=== PATIENT | female | born 1955 | race Caucasian/White ===

== ENCOUNTER 2024-12-15 09:52 | Outpatient (AMB) | payer MEDICARE, SELFPAY ==
--- NOTE | 2024-12-15 10:37 | A.OFFVIS_ITS ---
Intake Visit Reasons: 1 yr RLS Allergies No Known Allergies Allergy (Verified 12/09/24 08:22) HPI Comments Details: 69 yo woman with HTN, HLD, anxiety, and restless leg syndrome. She has been suffering from this condition for many years but especially during last 2-3 years. It was a problem at night when she would try to go to sleep in her feet and legs would keep on moving. Ropinorole was helpful. She denies any obvious side effects. She is presenting with Restless Legs Syndrome for follow-up. She reports experiencing occasional severe spells of restless legs, particularly at night. She has observed a potential link with her activity levels and diet, noting that less daytime activity and eating sweets before bedtime may worsen her symptoms. She has been managing her condition with ropinirole 2 mg, which she has been taking regularly without encountering any side effects. The patient feels this medication is effective for the most part. She obtains her prescriptions from the [facility] pharmacy. FORMERLY [facility], [facility]–1983 Medical History (Updated 12/15/24 @ 10:38 by Delroy Ellsworth MD) RLS (restless legs syndrome) Review of Systems Const Details: - Neurological: Reports episodes of restless legs syndrome, particularly at night; Denies other neurologic symptoms. - General: Denies changes in overall health status or other new complaints. Physical Exam Neuro Other: Mental Status: Alert and oriented to person, place, and time. Normal attention. Normal spontaneous speech, fluency, and comprehension. No obvious issues with mood and memory. Affect is appropriate. Cranial Nerves: CN II: Visual garcia full to confrontation, visual acuity intact. CN III, IV, : Pupils equal, round, reactive to light and accommodation. Extraocular movements are normal. CN V: Facial sensation is normal. CN VII: Facial movements symmetrical. CN VIII: Hearing intact to bedside conversation is normal. CN IX, X: Palate elevates symmetrically. CN XI: Shoulder shrug and head turn symmetrical. CN XII: Tongue midline without atrophy or fasciculations. Motor: Bulk and tone normal in all extremities. No significant muscle weakness in arms and legs. No drift. Extrapyramidal: Full facial expressions and blinking. No rigidity. Movements are appropriate with no tremor or abnormality. Speech: Normal; no dysarthria or tremor. Assessment & Plan Assessment & Plan (1) RLS (restless legs syndrome): Code(s): G25.81 - Restless legs syndrome Category: Medical Plan Impression: Restless leg syndrome Rec: Ropinorole 2mg at bedtime Medications: New ropinirole 2 mg PO BEDTIME 100 tabs 2RF Coding Level of Care Code Est Pt Level 3 (22169) Diagnoses RLS (restless legs syndrome) G25.81
--- OUTSIDE RECORDS SUMMARY | 2024-12-15 10:53 | XMS_ITS ---
Author Name [facility] Organization Unknown Care Team Organization Name Specialty Phone Email Start Date End [facility] AC 11/30/2024
--- OUTSIDE RECORDS SUMMARY | 2024-12-15 10:53 | XMS_ITS | Clinical Summary ---
Author Organization [facility] Address [address] [place] [address] Phone Care Team Providers Care Team Physician Name Role Phone Haritha Gómez MD Primary Care Provider [phone] Allergies Active Allergy Reactions Criticality Noted Date Comments Amoxicillin Hives 09/02/2021 Medications calcium carbonate-vitam in D3 500 mg-3.125 mcg (125 unit) tablet per tabelt 1 tablet with food Active rOPINIRole (REQUIP) 2 mg tablet Take 1 tablet (2 mg total) by mouth. Active losartan (COZAAR) 100 mg tablet TAKE 1 TABLET BY MOUTH 1 TIME EACH DAY. 90 tablet 2 5 Active cholecalciferol (VITAMIN D-3) 25 mcg (1,000 unit) tablet TAKE 1 TABLET BY MOUTH EVERY DAY 90 tablet 2 5 Active halobetasol (ULTRAVATE) 0.05 % cream Apply topically 2 (two) times a day. Active albuterol HFA (PROAIR HFA ; PROVENTIL HFA ; VENTOLIN HFA) 90 mcg/actuation inhaler Inhale 2 puffs by mouth every 4 (four) hours if needed for wheezing. 6.7 g 11 5 Active atorvastatin (LIPITOR) 10 mg tablet TAKE 1 TABLET BY MOUTH EVERY DAY 90 tablet 1 5 Active citalopram (CeleXA) 20 mg tablet TAKE 1 TABLET BY MOUTH EVERYDAY AT BEDTIME 90 tablet 1 5 Active Wixela Inhub 250-50 mcg/dose diskus inhaler Inhale 1 puff by mouth 2 (two) times a day. 1 each 5 Active Wixela Inhub 250-50 mcg/dose diskus inhaler Inhale 1 puff by mouth 2 (two) times a day. 5 12/12/19 25 Discontinu ed(Reorder ) Active Problems Problem Noted Date Diagnosed Date COPD (chronic obstructive pu lmonary disease) ([facility] V24, [facility] V28) 10/28/2024 Lung cancer ([facility] [place]24, [facility] V28) 5 Nocturnal hypoxemia 10/28/2024 History of lung cancer 09/17/2024 Assessment & Plan (09/19/2024 11:25 AM EDT): Ms. Vásquez is a 67 yr. female, former smoker, who is S/P a R VATS converted to thoracotomy RML and RLL in August 2018 for stage IA2 (pT1b, pN0) squamous cell carcinoma. She was followed by Dr. Onofre and she reports no adjuvant chemotherapy. Her most recent chest CT scan which was performed on 09/14/2024 for which images I personally viewed and agree with radiologist findings which show no new or worsening suspicious pulmonary nodules or mediastinal lymphadenopathy to suggest recurrent or metastatic disease in the chest. Stable 2 mm nodule and stable adrenal nodule. Next chest CT scan will be due in 12 months which will be September 2025 and have a visit at the thoracic surgery department thereafter to discuss results. She is instructed to call the office prior with any questions or concerns. Restless leg syndrome 04/21/2024 Asymptomatic varicose veins 04/21/2024 Fatty liver 10/19/2023 Primary hypertension 03/20/2023 Hyperlipidemia 03/20/2023 Anxiety and depression 03/20/2023 Allergies 03/20/2023 Mild persistent asthma 03/20/2023 Adrenal nodule ([facility] V24) 09/02/2021 Overview (06/18/2023): right Encounters Date Type Department Care Team Description 11/07/2024 Telephone Internal Medicine - [address] [place] [address] Haritha Gómez MD 10/31/2024 9:15 AM EDT Office Visit Pulmonolgy [facility] [address] [facility] [address] [place] [phone] Rosa Rabago MD Pulmonary emphysema, unspecified emphysema type ([facility] V24, [facility]/H[facility] V28) (Primary Dx); Squamous cell carcinoma of right lung ([facility] V24, [facility] V28); Morbid obesity ([facility] V24, [facility] V28); Nocturnal hypoxemia; Obstructive sleep apnea; Mild persistent asthma 10/31/2024 Telephone [facility] [address] [place] [phone] Haritha Gómez MD 10/27/2024 Telephone Internal Medicine [facility] 175 [facility] [address] [place] [phone] Haritha Gómez MD 10/26/2024 10:45 AM EDT Office Visit Internal Medicine - [address] [place] [phone] Haritha Gómez MD Medicare annual wellness visit, subsequent (Primary Dx); Routine general medical examination at a health care facility; Primary hypertension; Mixed hyperlipidemia; Anxiety and depression; History of lung cancer; Mild persistent asthma, unspecified whether complicated; Asymptomatic varicose veins; Adrenal nodule ([facility] V24); Encounter for lipid screening for cardiovascular disease; Vitamin D deficiency; Other fatigue; Other abnormal glucose; Restless leg syndrome 10/13/2024 11:30 AM EDT Office Visit Internal Medicine [facility] [address] [facility] [address] [place] [phone] Haritha Gómez MD Palpitations (Primary Dx); Primary hypertension; Mild persistent asthma, unspecified whether complicated 09/26/2024 9:50 AM EDT Office Visit Gastroenterology [facility] 175 [facility] [address] [facility] [address] [place] [phone] Sofia Trujillo PA Hepatomegaly (Primary Dx); Fatty liver 09/19/2024 11:00 AM EDT Office Visit Thoracic Surgery - [place] [address] [facility] [address] [place] [phone] Joyce Benjamin NP History of lung cancer (Primary Dx) 09/16/2024 Telephone Gastroenterology - [place] 175 [facility] [address] [facility] [address] [place] [phone] Sofia Trujillo PA 09/14/2024 8:26 AM EDT - 09/14/2024 11:59 PM EDT Hospital Encounter [facility] CT Scan [address] [place] [phone] History of lung cancer Discharge Disposition: Home or Self Care from Last 3 Months Immunizations Name Administration Dates Next Due Influenza, Unspecified 02/02/2023 Pneumococcal conjugate 20 va lent (Prevnar 20, PCV 20) 2mo and older 02/02/2023 Tdap Tetanus diptheria acell ular pertussis (Boostrix; Adacel) 7yo and older 10/26/2024 Surgical History Surgery Date Site/Laterality Comments OTHER SURGICAL HISTORY 2020 Right PROCEDURE: [place] THORACOSCOPY W/LOBECTOMY SINGLE LOBE OTHER SURGICAL HISTORY 06/2018 PROCEDURE: [place] BRONCHOSCOPY W/CPTR-ASST IMAGE-GUIDED NAVIGATION Medical History Medical History Date Comments Mixed hyperlipidemia DX:Mixed hy perlipidemia COPD (chronic obstructive pu lmonary disease) ([facility] V24, [facility] V28) DX:COPD (chronic o bstructive pulmonary disease) ([facility]) Anxiety disorder DX:Anxiety diso rder Essential (primary) hypertension DX:Essential (primary) hypertension Pneumonia 06/13/2022 DX:Pneumonia Tobacco dependence 06/13/2022 DX:Tobacco de pendence IGT (impaired glucose tolerance) 06/13/2022 DX:IGT (impaired glucose tolerance) Squamous cell carcinoma of r ight lung ([facility] V24, [facility] V28) 06/13/2022 DX:Squamous cell carcinoma of right lung (HCC); COMMENT: Per PCP OV note - 06/13/2022 Moderate persistent asthma w ithout complication 06/13/2022 DX:Moderate persistent asthm a without complication Primary hypertension 03/20/2023 DX:Primary hypertension Adrenal nodule ([facility] V24) 09/02/2021 DX: Adrenal nodule (HCC); COMMENT: right Hyperlipidemia 03/20/2023 DX:Hyperlipidemi a Anxiety and depression 03/20/2023 DX:Anxiet y and depression History of lung cancer 09/02/2021 DX:Histor y of lung cancer; COMMENT: August 2018: Stage 1A2 (pT1b, pN0) squamous cell carcinoma s/p RML/RLL bilobectomy via thoracotomy (Dr. Lowe, [facility]) Allergies 03/20/2023 DX:Allergies Mild persistent asthma 03/20/2023 DX:Mild p ersistent asthma Family History Medical History Relation Name Comments Breast cancer Aunt Other: Thyroid Cancer Brother Diabetes Father Heart attack Father Kidney failure Father Lymphoma Mother Other: Atrial Fib Mother Other: Thyroid Cancer Sister Relation Name Status Comments Aunt Alive Brother Father Mother Sister Social History Tobacco Use Types Packs/Day Years Used Date Smoking Tobacco: Former Cigarettes Q uit: 04/13/2018 Tobacco Cessation:Counseling Given: Not Answered Comments Unknown Sex and Gender Information Value Date Recorded Sex Assigned at Female 03/01/2024 6:46 PM EST Legal Sex Female 1:23 AM EST Gender Identity Female 03/01/2024 6:46 PM EST Sexual Orientation Not on file Obstetrics History Last Filed Vital Signs Vital Sign Reading Time Taken Comments Blood Pressure 142/61 10/31/2024 9:19 AM EDT Pulse 74 10/31/2024 9:19 AM EDT Temperature 36.4 C (97.6 F) 10/31/2024 9:19 AM EDT Respiratory Rate 20 10/31/2024 9:19 AM EDT Oxygen Saturation 98% 10/31/2024 9:19 AM EDT Inhaled Oxygen Concentration - - Weight 119 kg (263 lb) 10/31/2024 9:19 AM EDT Height 177.8 cm (5' 10 ) 10/31/2024 9:19 AM EDT Body Mass Index 37.74 10/31/2024 9:19 AM EDT Plan of Treatment Upcoming Encounters Date Type Department Care Team (Late st Contact Info) Description 02/14/2025 9:15 AM EST Ancillary Procedure Pulmonolgy - [place] 175 [facility] [address] [place] [address] 02/14/2025 10:00 AM EST Office Visit Pulmonolgy - [place] 175 [facility] [address] [place] [address] Rosa Rabago MD [address] [place] [address] 05/02/2025 9:10 AM EST Office Visit Gastroenterology - [address] [phone] Sofia Trujillo PA [address] [place] [address] 10/27/2025 9:15 AM EDT Office Visit Internal Medicine - [place] [address] [phone] Haritha Gómez MD [address] [place] [address] Health Maintenance Due Date Last Done Comments Hepatitis A Vaccines (1 of 2 - Risk 2-dose series) 10/19/1974 Zoster Vaccines (1 of 2) 10/19/1974 Hepatitis B Vaccines (1 of 3 - Risk 3-dose series) 2015 RSV Immunization Adult Patients (1 - Risk 60-74 years 1-dose series) 2015 COVID-19 Vaccine ( season) 2024 02/20/2022, 01/24/2021, 07/22/2020, Additional history exists Influenza Vaccine (#1) 2024 , 02/02/2023, 02/16/2019, Additional history exists Falls Risk Assessment 10/26/2025 10/26/2024 Medicare Annual Wellness Visit 10/26/2025 10/26/2024 Social Influencers of Health Screening 10/26/2025 10/26/2024 Hypertension/CHF/CAD Annual BMP Blood Test 10/27/2025 10/27/2024, 10/28/2023 Breast Cancer Screening 12/23/2025 12/24/19 24, 09/30/2022, 06/27/2021, Additional history exists Colorectal Cancer Screening: Colonoscopy 02/25/2029 02/25/2019, 02/25/2019 Cholesterol Screening (Lipid Panel) 10/27/2029 10/27/2024, 10/28/2023, 03/24/2023 Osteoporosis Screening (Bone Density Screening) 09/29/2032 09/29/2022 DTaP,Tdap,and Td Vaccines (2 - Td or Tdap) 10/26/2034 10/26/2024 Pneumococcal Vaccine: 50+ Years Completed 02/02/2023 Hepatitis C Screening Addressed 03/24/2023 Overri dden with the intention of not completing the topic Depression Screening Completed 10/26/2024 HIB Vaccines Aged Out No longer eligi ble based on patient's age to complete this topic HPV Vaccines Aged Out No longer eligi ble based on patient's age to complete this topic IPV Vaccines Aged Out No longer eligi ble based on patient's age to complete this topic MMR Vaccines Aged Out No longer eligi ble based on patient's age to complete this topic Meningococcal ACWY Vaccine Aged Out N o longer eligible based on patient's age to complete this topic Meningococcal B Vaccine Aged Out No l onger eligible based on patient's age to complete this topic RSV Immunization Patients Under 20 months Aged Out No longer eligible based on patient's age to complete this topic Varicella Vaccines Aged Out No longer eligible based on patient's age to complete this topic Procedures Procedure Name Priority Date/Time Associated Diagnosis Comments BILIRUBIN DUPLICATE PROCEDURE TO ORDER Routine 10/27/2024 8:55 AM EDT Fatty liver CBC WITH AUTO DIFFERENTIAL Routine 10/27/2024 8:55 AM EDT Medicare annual wellness visit, subsequent Other fatigue THYROID STIMULATING HORMONE WITH REFLEX TO FREE T4 AND FREE T3 Routine 10/27/2024 8:55 AM EDT Medicare annual wellness visit, subsequent Other fatigue VITAMIN D 25 HYDROXY Routine 10/27/2024 8:55 AM EDT Medicare annual wellness visit, subsequent Vitamin D deficiency LIPID PANEL WITH REFLEX TO DIRECT LDL Routine 10/27/2024 8:55 AM EDT Medicare annual wellness visit, subsequent Mixed hyperlipidemia COMPREHENSIVE METABOLIC PANEL Routine 10/27/2024 8:55 AM EDT Medicare annual wellness visit, subsequent Other fatigue VITAMIN B12 Routine 10/27/2024 8:55 AM EDT Medicare annual wellness visit, subsequent Other fatigue HEMOGLOBIN A1C Routine 10/27/2024 8:55 AM EDT Medicare annual wellness visit, subsequent Other abnormal glucose CBC AND DIFFERENTIAL Routine 10/27/2024 8:55 AM EDT Medicare annual wellness visit, subsequent Other fatigue CT CHEST WO CONTRAST Routine 09/14/2024 8:47 AM EDT History of lung cancer [facility] SCREENING DIGITAL Routine 12/24/2023 11:55 AM EDT Encounter for screening mammogram for malignant neoplasm of breast [facility] DEXA AXIAL SKELETON Routine 09/29/2022 10:15 AM EDT Encounter for screening for osteoporosis EXTERNAL COLONOSCOPY REPORT Routine 02/25/2019 2:44 PM EST from Last 3 Months or Most Recently Relevant to Health Maintenance Results * Bilirubin duplicate procedure to order (10/27/2024 8:55 AM EDT) Total Bilirubin 0.7 0.0 - 1.4 mg/dL LAB CHEMISTRY METHOD 10/27/2024 10:32 AM EDT [facility] Bilirubin, Direct 0.2 0.0 - 0.3 mg/dL LAB CHEMISTRY METHOD 10/27/2024 10:32 AM EDT [facility] Bilirubin, Indirect 0.5 0.0 - 1.1 mg/dL LAB CHEMISTRY METHOD 10/27/2024 10:32 AM EDT [facility] Blood Venous blood specimen / Unknown Venipuncture / Unknown 10/27/2024 8:55 AM EDT 10/27/2024 8:55 AM EDT us Sofia LESLIE LAB BLOOD ORDERABLES Final Re sult [facility] [address] [place] [address], * Thyroid stimulating hormone with reflex to free t4 and free t3 (10/27/2024 8:55 AM EDT) TSH 1.08 0.40 - 4.00 mcIU/mL LAB CHEMISTRY METHOD 10/27/2024 1:15 PM EDT [facility] Blood Venous blood specimen / Unknown Venipuncture / Unknown 10/27/2024 8:55 AM EDT 10/27/2024 8:55 AM EDT us Haritha Gómez MD LAB BLOOD ORDERABLES Final Resul t [facility] [address] [place] [address], [place] [phone] * Lipid panel with reflex to direct LDL (10/27/2024 8:55 AM EDT) Pathologist [facility] Cholesterol 144 0 - 200 mg/dL LAB CHEMISTRY METHOD 10/27/2024 10:32 AM EDT [facility] Triglycerides 124 0 - 150 mg/dL LAB CHEMISTRY METHOD 10/27/2024 10:32 AM T [facility] HDL 45 >=40 mg/dL LAB CHEMISTRY METHOD 10/27/2024 10:32 AM [facility] LDL Calculated 74 0 - 100 mg/dL LAB CHEMISTRY METHOD 10/27/2024 10:32 AM T [facility] VLDL Cholesterol [place] 24.8 mg/dL LAB CHEMISTRY METHOD 10/27/2024 10:32 AM [facility] Non HDL Chol. (LDL+VLDL) 99 <145 mg/dL LAB CHEMISTRY METHOD 10/27/2024 10:32 AM [facility] Chol/HDL Ratio 3.2 0.0 - 4.4 LAB CHEMISTRY METHOD 10/27/2024 10:32 AM [facility] Blood Venous blood specimen / Unknown Venipuncture / Unknown 10/27/2024 8:55 AM EDT 10/27/2024 8:55 AM EDT Haritha Gómez MD LAB BLOOD ORDERABLES Final Resul t [facility] [address] [place] [address], * (ABNORMAL) CBC auto differential (10/27/2024 8:55 AM EDT) WBC 6.6 4.8 - 10.8 K/mcL LAB HEMETOLOGY METHOD 10/27/2024 10:20 AM EDT [facility] RBC 4.10 3.80 - 4.80 M/mcL LAB HEMETOLOGY METHOD 10/27/2024 10:20 AM EDT [facility] Hemoglobin 13.3 11.5 - 16.0 g/dL LAB HEMETOLOGY METHOD 10/27/2024 10:20 AM T [facility] Hematocrit 41.9 35.0 - 47.0 % LAB HEMETOLOGY METHOD 10/27/2024 10:20 AM EDT [facility] MCV 101.5(H) 79.0 - 98.0 FL LAB HEMETOLOGY METHOD 10/27/2024 10:20 AM [facility] MCH 32.2(H) 27.0 - 32.0 pcg LAB HEMETOLOGY METHOD 10/27/2024 10:20 AM EDT [facility] MCHC 31.7(L) 32.0 - 37.0 g/dL LAB HEMETOLOGY METHOD 10/27/2024 10:20 AM EDT [facility] RDW 13.0 11.0 - 15.0 % LAB HEMETOLOGY METHOD 10/27/2024 10:20 AM T [facility] Platelets 294 130 - 400 K/mcL LAB HEMETOLOGY METHOD 10/27/2024 10:20 AM [facility] MPV 8.9 7.0 - 11.0 FL LAB HEMETOLOGY METHOD 10/27/2024 10:20 AM [facility] NRBC 0.0 <1.0 % LAB HEMETOLOGY METHOD 10/27/2024 10:20 AM [facility] NRBC Absolute 0.00 <0.10 K/mcL LAB HEMETOLOGY METHOD 10/27/2024 10:20 AM [facility] Neutrophils Relative 60.2 % LAB HEMETOLOGY METHOD 10/27/2024 10:20 AM [facility] Lymphocytes Relative 26.5 % LAB HEMETOLOGY METHOD 10/27/2024 10:20 AM [facility] Monocytes Relative 8.0 % LAB HEMETOLOGY METHOD 10/27/2024 10:20 AM [facility] Eosinophils Relative 3.6 % LAB HEMETOLOGY METHOD 10/27/2024 10:20 AM [facility] Basophils Relative 1.4 % LAB HEMETOLOGY METHOD 10/27/2024 10:20 AM [facility] Immature Granulocytes Relative 0.3 % LAB HEMETOLOGY METHOD 10/27/2024 10:20 AM [facility] Neutrophils Absolute 3.97 1.50 - 7.00 K/mcL LAB HEMETOLOGY METHOD 10/27/2024 10:20 AM [facility] Lymphocytes Absolute 1.75 1.00 - 5.00 K/mcL LAB HEMETOLOGY METHOD 10/27/2024 10:20 AM [facility] Monocytes Absolute 0.53 0.20 - 1.00 K/mcL LAB HEMETOLOGY METHOD 10/27/2024 10:20 AM [facility] Eosinophils Absolute 0.24 0.00 - 0.50 K/mcL LAB HEMETOLOGY METHOD 10/27/2024 10:20 AM EDT [facility] Basophils Absolute 0.09 0.00 - 0.20 K/[facility] LAB HEMETOLOGY METHOD 10/27/2024 10:20 AM EDT [facility] Immature Granulocytes Absolute 0.02 0.00 - 0.03 K/[facility] LAB HEMETOLOGY METHOD 10/27/2024 10:20 AM EDT [facility] Blood Venous blood specimen / Unknown Venipuncture / Unknown 10/27/2024 8:55 AM EDT 10/27/2024 8:55 AM EDT Haritha Gómez MD LAB BLOOD ORDERABLES Final Resul t Performing Organization Address [facility]/ZIP Co de Phone Number [facility] [address] [place] [address], [place] [phone] * Vitamin D 25 hydroxy (10/27/2024 8:55 AM EDT) Vit D, 25-Hydroxy 39.8 30.0 - 80.0 ng/mL LAB CHEMISTRY METHOD 10/27/2024 1:15 PM EDT [facility] Blood Venous blood specimen / Unknown Venipuncture / Unknown 10/27/2024 8:55 AM EDT 10/27/2024 8:55 AM EDT Haritha Gómez MD LAB BLOOD ORDERABLES Final Resul t [facility] [address] [place] [address], [place] [phone] * Hemoglobin A1c (10/27/2024 8:55 AM EDT) Hemoglobin A1C 6.1 <6.5 % LAB CHEMISTRY METHOD 10/27/2024 12:32 PM EDT [facility] Mean Bld Glu Estim. 128 mg/dL LAB CHEMISTRY METHOD 10/27/2024 12:32 PM EDT [facility] Blood Venous blood specimen / Unknown Venipuncture / Unknown 10/27/2024 8:55 AM EDT 10/27/2024 8:55 AM EDT Haritha Gómez MD LAB BLOOD ORDERABLES Final Resul t [facility] [address] [place] [address], [place] [phone] * Vitamin B12 (10/27/2024 8:55 AM EDT) Pathologist [facility] Vitamin B-12 641 250 - 900 pcg/mL LAB CHEMISTRY METHOD 10/27/2024 10:55 AM EDT [facility] Blood Venous blood specimen / Unknown Venipuncture / Unknown 10/27/2024 8:55 AM EDT 10/27/2024 8:55 AM EDT Haritha Gómez MD LAB BLOOD ORDERABLES Final Resul t Performing Organization Address City/[facility]/ZIP Co de Phone Number [facility] [address] [place] [address], [place] [phone] * (ABNORMAL) Comprehensive metabolic panel (10/27/2024 8:55 AM EDT) Pathologist [facility] Sodium 140 133 - 145 mmol/L LAB CHEMISTRY METHOD 10/27/2024 10:32 AM EDT [facility] Potassium 4.7 3.5 - 5.5 mmol/L LAB CHEMISTRY METHOD 10/27/2024 10:32 AM EDT [facility] Chloride 103 96 - 110 mmol/L LAB CHEMISTRY METHOD 10/27/2024 10:32 AM EDT [facility] CO2 32 21 - 32 mmol/L LAB CHEMISTRY METHOD 10/27/2024 10:32 AM EDT [facility] Anion Gap 5 3 - 11 LAB CHEMISTRY METHOD 10/27/2024 10:32 AM [facility] Glucose 115(H) 70 - 100 mg/dL LAB CHEMISTRY METHOD 10/27/2024 10:32 AM [facility] BUN 18 5 - 25 mg/dL LAB CHEMISTRY METHOD 10/27/2024 10:32 AM [facility] Creatinine 0.95 0.50 - 1.10 mg/dL LAB CHEMISTRY METHOD 10/27/2024 10:32 AM [facility] eGFR 65 >=60 mL/min/1. 73m2 LAB CHEMISTRY METHOD 10/27/2024 10:32 AM [facility] Comment:Calculation based on the Chronic Kidney Disease Epidemiology Collaboration (CKD-EPI) equation refit without adjustment for race. BUN/Creatinine Ratio 18.9 LAB CHEMISTRY METHOD 10/27/2024 10:32 AM [facility] Calcium 9.5 8.5 - 10.5 mg/dL LAB CHEMISTRY METHOD 10/27/2024 10:32 AM [facility] AST (SGOT) 22 10 - 42 unit/L LAB CHEMISTRY METHOD 10/27/2024 10:32 AM [facility] ALT (SGPT) 39 10 - 60 unit/L LAB CHEMISTRY METHOD 10/27/2024 10:32 AM [facility] Alkaline Phosphatase 58 42 - 121 unit/L LAB CHEMISTRY METHOD 10/27/2024 10:32 AM [facility] Total Protein 7.0 6.0 - 8.0 g/dL LAB CHEMISTRY METHOD 10/27/2024 10:32 AM [facility] Albumin 3.9 3.2 - 5.0 g/dL LAB CHEMISTRY METHOD 10/27/2024 10:32 AM [facility] Total Bilirubin 0.7 0.0 - 1.4 mg/dL LAB CHEMISTRY METHOD 10/27/2024 10:32 AM [facility] Blood Venous blood specimen / Unknown Venipuncture / Unknown 10/27/2024 8:55 AM EDT 10/27/2024 8:55 AM EDT Haritha Gómez MD LAB BLOOD ORDERABLES Final Resul t [facility] [address] [place] [address], * CT Chest wo Contrast (09/14/2024 8:47 AM EDT) Anatomical Region Laterality Modality Body Computed Tomogra phy 09/14/2024 11:3 1 AM EDT Impressions 09/14/2024 11:35 AM EDT Right middle and lower lobectomy. Stable 2 mm groundglass nodule at the right lung base. Stable right adrenal nodule. -------- FINAL REPORT -------- Dictated By: Paul Boone Dictated Date: 09/14/2024 11:31 ET Assigned Physician: Paul Boone Reviewed and Electronically Signed By: Paul Boone Signed Date: 09/14/2024 11:35 ET Workstation ID: [id number] Transcribed By: Self Edit Transcribed Date: 09/14/2024 11:31 ET Narrative 09/14/2024 11:35 AM EDT PROCEDURE: CT of the chest without intravenous contrast. TECHNIQUE: CT of the chest without intravenous contrast administration. Coronal and sagittal reformats and MIP reconstructions were created. Dose length product: 168 mGy-cm. HISTORY: RML and RLL lobectomy. History of lung cancer. COMPARISON: 10/05/2023. FINDINGS: LUNGS/PLEURA: Right middle and lower lobectomy. Mild centrilobular emphysema. Stable 2 mm groundglass nodule in the lateral right base, series 4 image 158. No pleural effusion or pneumothorax. MEDIASTINUM/KATHY: Shifted to the right. No mediastinal mass or lymphadenopathy. No appreciable hilar lymphadenopathy on limited noncontrast evaluation. VASCULATURE: Normal caliber pulmonary arteries. Moderate atherosclerotic calcifications of the aorta and great vessels. CARDIAC: Normal heart size. Moderate coronary artery calcification. CHEST WALL: No axillary or supraclavicular lymphadenopathy. LIMITED ABDOMEN: Stable 2.7 x 1.6 cm right adrenal nodule. BONES: Degenerative changes of the spine. Procedure Note Paul Boone MD - 09/14/2024 PROCEDURE: CT of the chest without intravenous contrast. TECHNIQUE: CT of the chest without intravenous contrast administration.Coronal and sagittal reformats and MIP reconstructions were created. Dose length product: 168 mGy-cm. HISTORY: RML and RLL lobectomy. History of lung cancer. COMPARISON: 10/05/2023. FINDINGS: LUNGS/PLEURA: Right middle and lower lobectomy. Mild centrilobularemphysema. Stable 2 mm groundglass nodule in the lateral right base,series 4 image 158. No pleural effusion or pneumothorax. MEDIASTINUM/KATHY: Shifted to the right. No mediastinal mass orlymphadenopathy. No appreciable hilar lymphadenopathy on limitednoncontrast evaluation. VASCULATURE: Normal caliber pulmonary arteries. Moderate atheroscleroticcalcifications of the aorta and great vessels. CARDIAC: Normal heart size. Moderate coronary artery calcification. CHEST WALL: No axillary or supraclavicular lymphadenopathy. LIMITED ABDOMEN: Stable 2.7 x 1.6 cm right adrenal nodule. BONES: Degenerative changes of the spine. IMPRESSION: Right middle and lower lobectomy. Stable 2 mm groundglass nodule at the right lung base. Stable right adrenal nodule. -------- FINAL REPORT -------- Dictated By: Paul Boone Dictated Date: 09/14/2024 11:31 ET Assigned Physician: Paul Boone Reviewed and Electronically Signed By: Paul Boone Signed Date: 09/14/2024 11:35 ET Workstation ID: [id number] Transcribed By: Self Edit Transcribed Date: 09/14/2024 11:31 ET Joyce Benjamin NP IMG CT PROCEDURES Final Res ult * [facility] SCREENING DIGITAL (12/24/2023 11:55 AM EDT) Anatomical Region Laterality Modality Mammography 12/24/2023 9:00 AM EDT Narrative 12/24/2023 11:55 AM EDT [facility] Diagnostic Imaging Department [address] [place] [address] Patient: MIRELLA VÁSQUEZ Brent MijaresB./Age/Sex: 1955 - 68 - F Unit#: [id number] Location/Status: [facility] CLI Mnemonic/Ordering Site: [facility] Ordering Physician: HARITHA GÓMEZ MD [facility] Screening Digital - 12/24/23918 Report Status:Signed EXAM: [facility] Screening Digital EXAM DATE AND TIME: 12/24/2023 9:20 AM HISTORY: Screening. COMPARISON: 09/29/22, 06/27/21, 05/21/20 TECHNIQUE: Bilateral digital breast tomosynthesis was performed in the CC and MLO projections. Computer aided detection with Shortlist 3D 3.1 was employed. TISSUE DENSITY: a. The breasts are almost entirely fatty. FINDINGS: No suspicious masses, grouped microcalcifications, or areas of architectural distortion are seen. The skin and vascularity are unremarkable. IMPRESSION: Stable mammographic appearance of the breasts. No evidence of malignancy is seen. A negative mammogram in the presence of a clinically suspicious palpable abnormality does not preclude the possibility of malignancy or alter the indications for biopsy. BI-RADS: Category 1: Negative RECOMMENDATION(S): 1: Routine screening mammogram BILATERAL in 1 year. [facility] performed at [facility] [address] [place] [address] Dictating Physician: TANIA PORTILLO MD Electronically Signed by: TANIA PORTILLO MD Dic Date/Time: 12/24/23 1154 Sign date/Time: 12/24/23 1155 Procedure Note Tania Portillo MD - 01/27/2024 [facility] Diagnostic Imaging Department [address] [place] [id number] Patient: MIRELLA VÁSQUEZ Brent MijaresB./Age/Sex: 1955 - 68 - F Unit#: [id number] Location/Status: [facility] Mnemonic/Ordering Site: [facility] Ordering Physician: HARITHA GÓMEZ MD [facility] Screening Digital - 12/24/23 - 09 Report Status:Signed EXAM: [facility] Screening Digital EXAM DATE AND TIME: 12/24/2023 9:20 AM HISTORY: Screening. COMPARISON: 09/29/22, 06/27/21, 05/21/20 TECHNIQUE: Bilateral digital breast tomosynthesis was performed in the CCand MLO projections. Computer aided detection with Shortlist 3D 3.1was employed. TISSUE DENSITY: a. The breasts are almost entirely fatty. FINDINGS: No suspicious masses, grouped microcalcifications, or areas ofarchitectural distortion are seen. The skin and vascularity are unremarkable. IMPRESSION: Stable mammographic appearance of the breasts. No evidence of malignancyis seen. A negative mammogram in the presence of a clinically suspicious palpable abnormality does not preclude the possibility of malignancy or alter the indications for biopsy. BI-RADS: Category 1: Negative RECOMMENDATION(S): 1: Routine screening mammogram BILATERAL in 1 year. Mammogram performed at [facility] [address], [place] [address] Dictating Physician: TANIA PORTILLO MD Electronically Signed by: TANIA PORTILLO MD Dic Date/Time: 12/24/23 1154 Sign date/Time: 12/24/23 1155 us Haritha Gómez MD IMG BI PROCEDURES Final Result * [facility] DEXA AXIAL SKELETON (09/29/2022 10:15 AM EDT) Anatomical Region Laterality Modality Mammography 09/29/2022 9:13 AM EDT Narrative 09/29/2022 10:15 AM EDT [facility] Diagnostic Imaging Department [address] [place] [id number] Patient: MIRELLA VÁSQUEZ Brent MijaresB./Age/Sex: 1955 - 66 - F Unit#: [id number] Location/Status: [facility]onic[facility] Ordering Physician: NASRA GARLAND SASH FINISHER [facility] Dexa Axial Skeleton - 09/29/22 - 0949 Report Status:Signed HISTORY: The patient is a 66-year-old postmenopausal female with clinical concern for metabolic bone disease. FINDINGS: Dual energy x-ray absorptiometry of the lumbar spine and femurs is performed. The mean bone mineral density at L1-L4 is 1.258 gm/cm2 which is 107% of that of young normals and 112% of that of age matched controls. This yields a T-score of 0.7 and a Z-score of 1.1 and there is therefore no evidence of osteoporosis or osteopenia here. The mean bone mineral density of the femurs bilaterally is 1.016 gm/cm2 which is 101% of that of young normals and 107% of that of age matched controls. This yields a T-score of 0.1 and a Z-score of 0.5 and there is therefore no evidence of osteoporosis or osteopenia here. However, the T-score of the right femoral neck is -1.1 which is diagnostic of osteopenia. IMPRESSION: 1. Osteopenia. There has been an increase of 0.9% in bone mineral density in the lumbar spine since the prior examination of 12/06/2014. There has been a decrease of 4.2% in bone mineral density in the right femur and an increase of 2.8% in bone mineral density in the left femur. 2. FRAX analysis yields a 10-year probability of major osteoporotic fracture of 7.9% and a 10-year probability of hip fracture of 0.7%. Code 82126 Dictating Physician: ABHINAV GAYTAN MD Electronically Signed by: ABHINAV GAYTAN MD Dic Date/Time: 09/29/22 1013 Sign date/Time: 09/29/22 1015 Procedure Note Abhinav Gaytan MD - 05/19/2023 [facility] Diagnostic Imaging Department [address] [place] [address] Patient: MIRELLA VÁSQUEZ Brent Ayoub/Age/Sex: 1955 - 66 - F Unit#: [id number] Location/Status: [facility] Mnemonic[facility]Ordering [facility] Ordering Physician: NASRA GARLAND NP [facility] Dexa Axial Skeleton - 09/29/22 - 0949 Report Status:Signed HISTORY: The patient is a 66-year-old postmenopausal female withclinical concern for metabolic bone disease. FINDINGS: Dual energy x-ray absorptiometry of the lumbar spine and femursis performed. The mean bone mineral density at L1-L4 is 1.258 gm/cm2 which is107% of that of young normals and 112% of that of age matched controls. Thisyields a T-score of 0.7 and a Z-score of 1.1 and there is therefore no evidenceof osteoporosis or osteopenia here. The mean bone mineral density of the femurs bilaterally is 1.016 gm/[id number] is 101% of that of young normals and 107% of that of age matched controls.This yields a T-score of 0.1 and a Z-score of 0.5 and there is therefore noevidence of osteoporosis or osteopenia here. However, the T-score of the rightfemoral neck is -1.1 which is diagnostic of osteopenia. IMPRESSION: 1. Osteopenia. There has been an increase of 0.9% in bone mineral densityin the lumbar spine since the prior examination of 12/06/2014. There has ramos decrease of 4.2% in bone mineral density in the right femur and anincrease of 2.8% in bone mineral density in the left femur. 2. FRAX analysis yields a 10-year probability of major osteoporoticfracture of 7.9% and a 10-year probability of hip fracture of 0.7%. Code 96317 Dictating Physician: ABHINAV GAYTAN MD Electronically Signed by: ABHINAV GAYTAN MD Dic Date/Time: 09/29/22 1013 Sign date/Time: 09/29/22 1015 Nasra Garland NP IMG BI PROCEDURES Final Re sult * External Colonoscopy Report (02/25/2019 2:44 PM EST) Anatomical Region Laterality Modality Endoscopy us Historical Provider GI~PROCEDURE ORDERABLES F inal Result from Last 3 Months or Most Recently Relevant [place] [id number] [employer] Advance Directives * Full Code - Confirmed (Latest Code Status on File) Date Activated Date Inactivated Comments 10/26/2024 11:07 AM This code sta tus was ascertained in the following way: Code status discussion: discussion with patient To update the patient's code status, place a code status order. Do not modify or discontinue any currently active code status orders. Care Teams Team Physician Relationship Specialty Start Date End Date Haritha Gómez MD [address] [place] [phone] PCP - General 02/23/23
--- OUTSIDE RECORDS SUMMARY | 2024-12-15 10:53 | XMS_ITS | Clinical Summary ---
Author Organization [facility] Address [address] [place] [address] Care Team Providers Care Flanger Name Role Phone Nasra Garland APRN Primary Care Provider + Allergies Active Allergy Reactions Criticality Noted Date Comments Amoxicillin 06/24/2018 Amoxicillin-Pot Clavulanate 06/25/19 19 Medications Medication Sig Dispensed Refills Start Date End Date Status ALPRAZolam (XANAX) 0.25 MG tablet Take 0.25 mg by mouth every night at bedtime as needed for anxiety. 0 Active citalopram (CeleXA) 20 MG tablet Take 20 mg by mouth daily. 0 Active fluticasone (FLOVENT DISKUS) 50 MCG/BLIST diskus inhaler Inhale 1 puff into the lungs 2 (two) times a day. 0 Active levoFLOXacin (LEVAQUIN) 750 MG tablet Take 750 mg by mouth daily. 0 Active pravastatin (PRAVACHOL) tablet 40 mg Take 40 mg by mouth daily. 0 Active predniSONE (DELTASONE) tablet 10 mg Take by mouth every morning with breakfast. 0 Active albuterol (PROVENTIL HFA;VENTOLIN HFA) 108 (90 Base) MCG/ACT inhaler Inhale 2 puffs into the lungs every 6 (six) hours as needed for wheezing. 0 Active nicotine (NICODERM CQ) 21 MG/24HR Place 1 patch onto the skin daily. 0 Active budesonide-formoterol (SYMBICORT) 160-4.5 MCG/ACT inhaler Inhale 2 inhalations into the lungs 2 (two) times a day. 0 Active losartan (COZAAR) tablet 25 mg Take 25 mg by mouth daily. 0 Active Multiple Vitamin (MULTIVITAMINS PO) Take by mouth. 0 Ac tive rOPINIRole (REQUIP) 1 MG tablet Take 1 mg by mouth 3 (three) times a day. 0 Active BETAMETHASONE DIPROPIONATE EX Apply topically. 0 Act sandra CALCIPOTRIENE EX Apply topically. 0 Ac tive [place]-3 Fatty Acids (FISH OIL) 1200 MG CPDR Take by mouth. 0 Act sandra Calcium Carbonate-Vitamin D (CALCIUM 500 + D PO) Take by mouth. 0 Active losartan 50 MG TABS 2 tablet, hydroCHLOROthiazide 12.5 MG CAPS 1 capsule Take 1 tablet by mouth daily. 0 Active amLODIPine (NORVASC) tablet 10 mg Take 10 mg by mouth daily. 0 Active Active Problems No known active problems Family History Medical History Relation Name Comments Thyroid cancer Brother Cancer Maternal Aunt Lymphoma Mother Breast cancer Paternal Aunt Thyroid cancer Sister Relation Name Status Comments Brother Maternal Aunt Mother Paternal Aunt Sister Social History Tobacco Use Types Packs/Day Years Used Date Smoking Tobacco: Former Smokeless Tobacco: Never Alcohol Use Standard Drinks/Week Comments Yes 0 (1 standard drink = 0.6 oz pur e alcohol) Sex and Gender Information Value Date Recorded Sex Assigned at Not on file Gender Identity Not on file Sexual Orientation Not on file Last Filed Vital Signs Vital Sign Reading Time Taken Comments Blood Pressure 145/70 01/26/2020 2:45 PM EDT Pulse 88 01/26/2020 2:45 PM EDT Temperature 36.8 C (98.3 F) 01/26/2020 2:45 PM EDT Respiratory Rate - - Oxygen Saturation - - Inhaled Oxygen Concentration - - Weight 112.5 kg (248 lb) 01/26/2020 2:45 PM EDT Height 177.8 cm (5' 10 ) 01/26/2020 2:45 PM EDT Body Mass Index 35.58 01/26/2020 2:45 PM EDT Plan of Treatment Health Maintenance Due Date Last Done Comments Hepatitis C Screening 1955 COVID-19 Vaccine (#1) 04/21/1956 Pneumococcal Vaccine (1 of 2 - PCV) 10/19/1961 Depression Screening 1967 Preventative Health Evaluation 10/19/1973 DTap / Tdap / Td (1 - Tdap) 10/19/1974 Colon Cancer Screening (Colonoscopy) 10/19/2000 Breast Cancer Screening (Mammogram) 10/19/2005 Shingrix-Zoster Vaccine (1 of 2) 10/19/2005 Fall Risk Assessment 10/19/2020 Osteoporosis Screening (DEXA Scan) 10/19/2020 Influenza Vaccine (#1) 2024 RSV Adult > 60+ Yrs or Pregn ant (1 - 1-dose 75+ series) 10/19/2030 Hepatitis B Vaccines Aged Out No long er eligible based on patient's age to complete this topic RSV Ped < 20 months Aged Out No longe r eligible based on patient's age to complete this topic Care Teams Flanger Relationship Specialty Start Date End Date Nasra Garland, BEAD MACHINE OPERATOR [address] [facility] [address] [facility] ROSALIO Bernstein [id number] PCP - General Nurse Practitioner 06/24/18
== END 2024-12-15 10:42 | disposition home or self-care (01) ==
LOC: HO.HSM 09:52
PROVIDERS: PCP Student in an Organized Health Care Education/Training Program; Referring Provider Student in an Organized Health Care Education/Training Program; Visit Provider Psychiatry & Neurology Neurology
DX: G25.81 Restless legs syndrome (principal)
CPT/HCPCS: 99213

== ENCOUNTER → 2024-12-15 09:52 | Outpatient (BNVA) | payer MEDICARE, SELFPAY | PROVIDERS: PCP Student in an Organized Health Care Education/Training Program; Referring Provider Student in an Organized Health Care Education/Training Program; Visit Provider Psychiatry & Neurology Neurology | DX: G25.81 Restless legs syndrome (principal) | CPT/HCPCS: 99212 ==